=== PATIENT | male | born 1990 | race Caucasian/White ===

== ENCOUNTER 2017-03-07 18:37 | Emergency (ER) | payer MEDICARE | END 2017-03-07 22:48 | disposition home or self-care (01) | LOC: D.ER 18:37 | DX: Z98.890 Other specified postprocedural states (principal); Z87.820 Personal history of traumatic brain injury; F43.10 Post-traumatic stress disorder, unspecified; F17.200 Nicotine dependence, unspecified, uncomplicated ==